=== PATIENT | male | born 1980 | race Caucasian/White ===

== ENCOUNTER 2020-11-24 12:19 | Inpatient (IN) | payer OTHER ==
[2020-11-24] MEDS ORDERED: ACETAMINOPHEN 1000 MG/100 ML VIAL (NON FORMULARY) IVPB ONE (12:28)
[2020-11-24] MEDS ORDERED: SODIUM CHLORIDE 1,000 ML IV SCH (12:30)
[2020-11-24] MEDS ORDERED: ACETAMINOPHEN INJECTION 100 ML IVPB ONE (12:52)
[2020-11-24 13:20] LABS: BASO % 0.5 % (0-2.0); EOS % 0.1 % (0-4.5); HEMATOCRIT 42.8 % (35.4-49); HEMOGLOBIN 14.4 GM/dl (11.7-16.9); LYMPH % 5.5 % (8-40); MCH 28.8 pg (25.7-33.7); MCHC 33.5 g/dl (32.0-35.9); MEAN PLT VOLUME 12.1 fl (7.5-11.1); MONO % 4.9 % (3.8-10.2); PLATELET COUNT 134 10^3/uL (134-434); RBC 4.98 M/mm3 (4.00-5.60); RDW 12.9 % (11.9-15.9); WHITE BLOOD COUNT 14.1 K/mm3 (4.0-10.8)
[2020-11-24 13:28] LABS: ACTIVATED PTT 23.9 SECONDS (25.2-36.5); ALBUMIN 3.6 g/dl (3.4-5.0); BILIRUBIN,TOTAL 1.5 mg/dl (0.2-1); CALCIUM 8.4 mg/dl (8.5-10); CREATININE 0.8 mg/dl (0.55-1.3); TOT PROT 7.1 g/dl (6.4-8.2)
[2020-11-24 13:32] LABS: EPITHELIAL CELLS RARE /hpf
[2020-11-24 13:33] LABS: INR 1.36 (0.82-1.09); PROTHROMBIN TIME (PATIENT) 14.9 SEC (10.2-13.0)
[2020-11-24] MEDS ORDERED: FLUCONAZOLE 50 MG TABLET PO ONE (13:33)
[2020-11-24] MEDS ORDERED: FLUCONAZOLE 150 MG TABLET PO ONE (13:50)
[2020-11-24] MEDS ORDERED: CEFTRIAXONE 1,000 MG in DEXTROSE 5%-WATER - 50 ML IVPB ONE (15:04)
[2020-11-24] MEDS ORDERED: cefTRIAXone SODIUM 1 GM VIAL ONE (15:14)
[2020-11-24] MEDS ORDERED: SODIUM CHLORIDE 1,000 ML IV STA (15:53)
[2020-11-24] MEDS: ACETAMINOPHEN 325 MG TABLET (FP) PO PRN (20:58)
[2020-11-25] MEDS ORDERED: IBUPROFEN 800 MG/8 ML IJ IVPB ONE (00:07)
[2020-11-25] MEDS: INSULIN (NOVOLOG) ASPART 100 UNITS/ML 10ML VIAL SQ SCH ×4 (06:09→22:11)
[2020-11-25] MEDS: ACETAMINOPHEN 325 MG TABLET (FP) PO PRN ×3 (06:14→20:43)
[2020-11-25 07:56] LABS: BASO % 0.3 % (0-2.0); EOS % 0.7 % (0-4.5); HEMATOCRIT 40.4 % (35.4-49); HEMOGLOBIN 13.3 GM/dl (11.7-16.9); LYMPH % 8.9 % (8-40); MCH 28.5 pg (25.7-33.7); MEAN CELL VOLUME 86.4 fl (80-96); MEAN PLT VOLUME 11.4 fl (7.5-11.1); MONO % 11.3 % (3.8-10.2); NEUT % 78.8 % (42.8-82.8); PLATELET COUNT 124 10^3/uL (134-434); RBC 4.68 M/mm3 (4.00-5.60); RDW 12.8 % (11.9-15.9); WHITE BLOOD COUNT 12.4 K/mm3 (4.0-10.8)
[2020-11-25 08:14] LABS: ALBUMIN 3.1 g/dl (3.4-5.0); CALCIUM 8.2 mg/dl (8.5-10); CREATININE 0.8 mg/dl (0.55-1.3); MAGNESIUM 1.8 mg/dL (1.8-2.4); TOT PROT 6.4 g/dl (6.4-8.2)
[2020-11-25] MEDS ORDERED: cefTRIAXone SODIUM 1 GM VIAL ONE (09:26)
[2020-11-25] MEDS ORDERED: DEXTROSE 5%-WATER - 50 ML IVPB ONE (09:26)
[2020-11-25] MEDS: ENOXAPARIN NA (PORCINE) 40 MG/0.4 ML DISP.SYRIN SQ SCH (09:33)
[2020-11-25] MEDS: CEFTRIAXONE 1 GM in DEXTROSE 5%-WATER - 50 ML IVPB SCH (09:33)
[2020-11-25] MEDS ORDERED: INSULIN SLIDING SCALE (NOVOLOG) 1 VIAL SQ ONE ×2 (12:10→17:21)
[2020-11-25] MEDS ORDERED: AZITHROMYCIN 500 MG TABLET PO ONE (12:45)
[2020-11-25] MEDS: valACYclovir HCL 500 MG TABLET (FP) PO SCH ×2 (12:59→21:20)
[2020-11-25] MEDS ORDERED: PT OWN MED DRAWER 7, Y5N ONE (21:02)
[2020-11-25] MEDS: NYSTATIN 100000 UNIT/GM TOPICAL OINTMENT 15 GM TUBE TP SCH (21:20)
[2020-11-25 23:43] LABS: HIV INTERPRETATION NEGATIVE (NEGATIVE)
[2020-11-26] MEDS: INSULIN (NOVOLOG) ASPART 100 UNITS/ML 10ML VIAL SQ SCH ×4 (06:48→21:15)
[2020-11-26 08:24] LABS: BASO % 0.2 % (0-2.0); EOS % 0.4 % (0-4.5); HEMATOCRIT 39.8 % (35.4-49); HEMOGLOBIN 13.7 GM/dl (11.7-16.9); LYMPH % 17.4 % (8-40); MCH 29.5 pg (25.7-33.7); MCHC 34.3 g/dl (32.0-35.9); MEAN CELL VOLUME 85.9 fl (80-96); MEAN PLT VOLUME 11.3 fl (7.5-11.1); MONO % 12.9 % (3.8-10.2); NEUT % 69.1 % (42.8-82.8); PLATELET COUNT 172 10^3/uL (134-434); RBC 4.63 M/mm3 (4.00-5.60); RDW 12.5 % (11.9-15.9); WHITE BLOOD COUNT 8.9 K/mm3 (4.0-10.8)
[2020-11-26 08:37] LABS: BILIRUBIN,TOTAL 0.6 mg/dl (0.2-1); CALCIUM 8.5 mg/dl (8.5-10); CREATININE 0.9 mg/dl (0.55-1.3); TOT PROT 6.4 g/dl (6.4-8.2)
[2020-11-26] MEDS ORDERED: cefTRIAXone SODIUM 1 GM VIAL ONE (09:18)
[2020-11-26] MEDS ORDERED: DEXTROSE 5%-WATER - 50 ML IVPB ONE (09:18)
[2020-11-26] MEDS: valACYclovir HCL 500 MG TABLET (FP) PO SCH ×2 (09:30→21:16)
[2020-11-26] MEDS: CEFTRIAXONE 1 GM in DEXTROSE 5%-WATER - 50 ML IVPB SCH (09:30)
[2020-11-26] MEDS: ENOXAPARIN NA (PORCINE) 40 MG/0.4 ML DISP.SYRIN SQ SCH (09:31)
[2020-11-26] MEDS: NYSTATIN 100000 UNIT/GM TOPICAL OINTMENT 15 GM TUBE TP SCH ×2 (10:00→21:16)
[2020-11-26] MEDS ORDERED: INSULIN SLIDING SCALE (NOVOLOG) 1 VIAL SQ ONE (11:30)
[2020-11-26 17:18] VITALS: BMI 46.2
[2020-11-27] MEDS: INSULIN (NOVOLOG) ASPART 100 UNITS/ML 10ML VIAL SQ SCH ×4 (06:10→21:06)
[2020-11-27 08:08] LABS: ALBUMIN 3.1 g/dl (3.4-5.0); BILIRUBIN,TOTAL 0.6 mg/dl (0.2-1); CALCIUM 8.3 mg/dl (8.5-10); CREATININE 0.8 mg/dl (0.55-1.3); MAGNESIUM 1.9 mg/dL (1.8-2.4); TOT PROT 6.4 g/dl (6.4-8.2)
[2020-11-27 08:24] LABS: BASO % 0.8 % (0-2.0); EOS % 1.4 % (0-4.5); HEMATOCRIT 40.7 % (35.4-49); HEMOGLOBIN 13.7 GM/dl (11.7-16.9); LYMPH % 25.6 % (8-40); MCHC 33.7 g/dl (32.0-35.9); MEAN CELL VOLUME 86.1 fl (80-96); MONO % 14.6 % (3.8-10.2); NEUT % 57.6 % (42.8-82.8); PLATELET COUNT 178 10^3/uL (134-434); RBC 4.73 M/mm3 (4.00-5.60); RDW 12.6 % (11.9-15.9); WHITE BLOOD COUNT 5.8 K/mm3 (4.0-10.8)
[2020-11-27] MEDS ORDERED: cefTRIAXone SODIUM 1 GM VIAL ONE (09:18)
[2020-11-27] MEDS ORDERED: DEXTROSE 5%-WATER - 50 ML IVPB ONE (09:18)
[2020-11-27] MEDS: ENOXAPARIN NA (PORCINE) 40 MG/0.4 ML DISP.SYRIN SQ SCH (09:35)
[2020-11-27] MEDS: CEFTRIAXONE 1 GM in DEXTROSE 5%-WATER - 50 ML IVPB SCH (09:35)
[2020-11-27] MEDS: valACYclovir HCL 500 MG TABLET (FP) PO SCH ×2 (09:36→21:06)
[2020-11-27] MEDS: NYSTATIN 100000 UNIT/GM TOPICAL OINTMENT 15 GM TUBE TP SCH ×2 (09:37→21:07)
[2020-11-27] MEDS: metFORMIN HCL 500 MG TABLET (FP) PO SCH (16:19)
[2020-11-27] MEDS: ACETAMINOPHEN 325 MG TABLET (FP) PO PRN (20:07)
[2020-11-28] MEDS: ACETAMINOPHEN 325 MG TABLET (FP) PO PRN ×3 (02:51→22:14)
[2020-11-28] MEDS: metFORMIN HCL 500 MG TABLET (FP) PO SCH ×2 (06:28→17:51)
[2020-11-28] MEDS: INSULIN (NOVOLOG) ASPART 100 UNITS/ML 10ML VIAL SQ SCH ×4 (06:29→21:44)
[2020-11-28 08:02] LABS: BASO % 0.7 % (0-2.0); EOS % 0.2 % (0-4.5); HEMATOCRIT 42.1 % (35.4-49); HEMOGLOBIN 14.6 GM/dl (11.7-16.9); LYMPH % 16.5 % (8-40); MCH 29.4 pg (25.7-33.7); MCHC 34.6 g/dl (32.0-35.9); MEAN CELL VOLUME 84.9 fl (80-96); MEAN PLT VOLUME 10.9 fl (7.5-11.1); NEUT % 73.6 % (42.8-82.8); PLATELET COUNT 181 10^3/uL (134-434); RBC 4.96 M/mm3 (4.00-5.60); RDW 12.3 % (11.9-15.9); WHITE BLOOD COUNT 7.6 K/mm3 (4.0-10.8)
[2020-11-28 08:17] LABS: ALBUMIN 3.1 g/dl (3.4-5.0); BILIRUBIN,TOTAL 0.7 mg/dl (0.2-1); CALCIUM 8.4 mg/dl (8.5-10); MAGNESIUM 1.6 mg/dL (1.8-2.4); TOT PROT 6.6 g/dl (6.4-8.2)
[2020-11-28] MEDS ORDERED: MAGNESIUM OXIDE 400 MG TABLET (FP) PO ONE (08:30)
[2020-11-28 08:54] LABS: EPITHELIAL CELLS RARE /hpf; URINE MUCUS 1+
[2020-11-28] MEDS ORDERED: cefTRIAXone SODIUM 1 GM VIAL ONE (09:12)
[2020-11-28] MEDS ORDERED: DEXTROSE 5%-WATER - 50 ML IVPB ONE ×2 (09:13→12:59)
[2020-11-28] MEDS: ENOXAPARIN NA (PORCINE) 40 MG/0.4 ML DISP.SYRIN SQ SCH (09:21)
[2020-11-28] MEDS: CEFTRIAXONE 1 GM in DEXTROSE 5%-WATER - 50 ML IVPB SCH (09:22)
[2020-11-28] MEDS: NYSTATIN 100000 UNIT/GM TOPICAL OINTMENT 15 GM TUBE TP SCH ×2 (09:28→21:39)
[2020-11-28] MEDS ORDERED: PIPERACILLIN/TAZOB 3.375 GM 3.375 GM in DEXTROSE 5%-WATER - 50 ML IVPB SCH (11:30)
[2020-11-28] MEDS ORDERED: INSULIN SLIDING SCALE (NOVOLOG) 1 VIAL SQ ONE (11:38)
[2020-11-28] MEDS ORDERED: PIPERACILLIN/TAZOBACTAM 3.375 GM VIAL IVPB ONE ×2 (12:59→17:44)
[2020-11-28] MEDS ORDERED: SODIUM CHLORIDE 50 ML IVPB ONE (17:45)
[2020-11-28] MEDS: PIPERACILLIN/TAZOB 3.375 GM 3.375 GM in SODIUM CHLORIDE 50 ML IVPB SCH (17:50)
[2020-11-29] MEDS ORDERED: PIPERACILLIN/TAZOBACTAM 3.375 GM VIAL IVPB ONE ×2 (00:52→18:11)
[2020-11-29] MEDS ORDERED: SODIUM CHLORIDE 50 ML IVPB ONE ×2 (00:53→18:12)
[2020-11-29] MEDS: PIPERACILLIN/TAZOB 3.375 GM 3.375 GM in SODIUM CHLORIDE 50 ML IVPB SCH ×2 (01:04→10:12)
[2020-11-29] MEDS: INSULIN (NOVOLOG) ASPART 100 UNITS/ML 10ML VIAL SQ SCH ×4 (06:51→22:22)
[2020-11-29] MEDS: metFORMIN HCL 500 MG TABLET (FP) PO SCH ×2 (06:56→16:17)
[2020-11-29] MEDS: ENOXAPARIN NA (PORCINE) 40 MG/0.4 ML DISP.SYRIN SQ SCH (10:12)
[2020-11-29 11:47] LABS: ALBUMIN 3.1 g/dl (3.4-5.0); BILIRUBIN,TOTAL 0.5 mg/dl (0.2-1); CALCIUM 8.5 mg/dl (8.5-10); CREATININE 0.9 mg/dl (0.55-1.3); MAGNESIUM 1.8 mg/dL (1.8-2.4); TOT PROT 6.9 g/dl (6.4-8.2)
[2020-11-29] MEDS: NYSTATIN 100000 UNIT/GM TOPICAL OINTMENT 15 GM TUBE TP SCH ×2 (12:43→22:19)
[2020-11-29] MEDS: SODIUM CHLORIDE 1,000 ML IV SCH (14:30)
[2020-11-30] MEDS ORDERED: SODIUM CHLORIDE 50 ML IVPB ONE ×3 (00:30→17:51)
[2020-11-30] MEDS ORDERED: PIPERACILLIN/TAZOBACTAM 3.375 GM VIAL IVPB ONE ×3 (00:30→17:51)
[2020-11-30] MEDS: PIPERACILLIN/TAZOB 3.375 GM 3.375 GM in SODIUM CHLORIDE 50 ML IVPB SCH ×4 (01:34→18:00)
[2020-11-30] MEDS: metFORMIN HCL 500 MG TABLET (FP) PO SCH ×2 (07:05→17:59)
[2020-11-30] MEDS: INSULIN (NOVOLOG) ASPART 100 UNITS/ML 10ML VIAL SQ SCH ×4 (09:39→21:11)
[2020-11-30] MEDS: ENOXAPARIN NA (PORCINE) 40 MG/0.4 ML DISP.SYRIN SQ SCH (09:43)
[2020-11-30 10:09] LABS: INR 1.07 (0.82-1.09); PROTHROMBIN TIME (PATIENT) 11.9 SEC (10.2-13.0)
[2020-11-30 10:10] LABS: CALCIUM 8.7 mg/dl (8.5-10); CREATININE 0.7 mg/dl (0.55-1.3)
[2020-11-30] MEDS: NYSTATIN 100000 UNIT/GM TOPICAL OINTMENT 15 GM TUBE TP SCH ×2 (14:13→21:14)
[2020-11-30] MEDS: LACTOBACILLUS ACIDOPHILUS 1 TABLET PO SCH (14:14)
[2020-11-30] MEDS: SODIUM CHLORIDE 1,000 ML IV SCH (21:15)
[2020-12-01] MEDS ORDERED: PIPERACILLIN/TAZOBACTAM 3.375 GM VIAL IVPB ONE ×2 (00:04→09:27)
[2020-12-01] MEDS ORDERED: SODIUM CHLORIDE 50 ML IVPB ONE ×2 (00:04→09:27)
[2020-12-01] MEDS: PIPERACILLIN/TAZOB 3.375 GM 3.375 GM in SODIUM CHLORIDE 50 ML IVPB SCH ×2 (01:13→10:27)
[2020-12-01] MEDS: metFORMIN HCL 500 MG TABLET (FP) PO SCH (06:16)
[2020-12-01] MEDS: INSULIN (NOVOLOG) ASPART 100 UNITS/ML 10ML VIAL SQ SCH ×2 (06:16→11:35)
[2020-12-01 08:48] VITALS: BP 117/55; PULSE 70; TEMP 98.8
[2020-12-01] MEDS: LACTOBACILLUS ACIDOPHILUS 1 TABLET PO SCH (10:27)
[2020-12-01] MEDS: ENOXAPARIN NA (PORCINE) 40 MG/0.4 ML DISP.SYRIN SQ SCH (10:27)
[2020-12-01] MEDS: NYSTATIN 100000 UNIT/GM TOPICAL OINTMENT 15 GM TUBE TP SCH (10:28)
== END 2020-12-01 12:57 | disposition home or self-care (01) | DRG 720 ==
LOC: FER 12:19 → FM/S 15:25
PROVIDERS: ADMIT Internal Medicine; ATTEND Nurse Practitioner Acute Care
DX: A41.51 Sepsis due to Escherichia coli [E. coli] (principal); R50.9 Fever, unspecified; E66.01 Morbid (severe) obesity due to excess calories; Z68.42 Body mass index [BMI] 45.0-49.9, adult; N39.0 Urinary tract infection, site not specified; B00.1 Herpesviral vesicular dermatitis; E11.9 Type 2 diabetes mellitus without complications
CPT/HCPCS: 36415; 74177-TC; 80048; 80053; 80074; 81003; 81015; 82962; 83036; 83605; 83735; 85025; 85610; 85730; 86780; 87040; 87086; 87186; 87389; 87491; 87591; 99285-25; C9803; J0131; Q9967; U0003; U0005

== ENCOUNTER 2021-08-21 13:20 | Emergency (ER) | payer OTHER ==
[2021-08-21 13:31] VITALS: BP 139/53; PULSE 96; TEMP 98.6; BMI 45.8
== END 2021-08-21 14:50 | disposition home or self-care (01) ==
LOC: FER 13:20
DX: H92.01 Otalgia, right ear (principal)
CPT/HCPCS: 99281-25

== ENCOUNTER 2023-07-25 10:11 | Emergency (ER) | payer OTHER ==
[2023-07-25 10:34] VITALS: BP 157/109; PULSE 10; RESP 107; TEMP 98.3; BMI 45.0
[2023-07-25 11:27] LABS: EPITHELIAL CELLS 0-5 /hpf
[2023-07-25] MEDS ORDERED: IBUPROFEN 600 MG TABLET (FP) PO ONE (12:03)
[2023-07-25] MEDS: IBUPROFEN 600 MG TABLET (FP) PO ONE (12:04)
[2023-07-25] MEDS ORDERED: SULFAMETHOXAZOLE/TRIMETHOPRIM 800MG/160MG D.S. TABLET ONE (12:46)
[2023-07-25] MEDS: SULFAMETHOXAZOLE/TRIMETHOPRIM 800MG/160MG D.S. TABLET PO ONE (12:47)
== END 2023-07-25 13:01 | disposition home or self-care (01) ==
LOC: FER 10:11
DX: N30.00 Acute cystitis without hematuria (principal); R30.0 Dysuria; R51.9 Headache, unspecified; R10.30 Lower abdominal pain, unspecified; R11.0 Nausea
CPT/HCPCS: 74176-TC; 81003; 81015; 87086; 99284-25